=== PATIENT | female | born 1970 | race Caucasian/White ===

== ENCOUNTER 2017-04-03 18:48 | Inpatient (IN) | payer BC, OTHER ==
[~2017-04-03] VITALS: Ht 167.6 cm; Wt 76.2 kg
--- NOTE | ~2017-04-03 | H ---
[facility] [address] [place] [address] HISTORY AND PHYSICAL Name: SHEREE LEY Room #: 435-P ADM IN M.R.#: [id number] Admission: 04/03/17 Attend Phys: Jamir Simms MD Discharge: Date of : 68 Report #: [id number] THIS REPORT FOR: //name// CC: Jamir Choe DATE OF SERVICE: 04/03/2017 ATTENDING PHYSICIAN: Jamir Simms MD. PRIMARY CARE PHYSICIAN: Unknown. CHIEF COMPLAINT: Altered mental status. HISTORY OF PRESENT ILLNESS: The patient is a 46-year-old female who was sent as a direct admission from [facility] for altered mental status. She has been admitted there since 03/30/2017 for nausea and vomiting and head injury after a fall. She has chronic abdominal issues including chronic pancreatitis and sphincter of Oddi dysfunction and chronic abdominal pain. She has been getting second opinions with GI at [facility] and was recently diagnosed with cyclic vomiting syndrome. She was supposed to taper off her chronic narcotics and eventually her pancreatic enzymes and amitriptyline. She had been taking large amounts of oral Dilaudid and oxycodone for many years. She has been tapered off oxycodone since 03/20/2017. She said she was at home, having vomiting and then fell backwards in her bathroom and hit her head on a door knob and afterwards had some altered mental status, so she was taken into [facility]. She was treated as cyclic vomiting syndrome exacerbation initially, but she has continued to have altered mental status and delirium. Therefore, they requested a transfer to [facility] for further neurologic evaluation. The patient arrived confused. She was unable to remember where she was the last 4 days in the hospital. She thought she had stayed in a hotel last night in [place], [place]. She was unable to tell me the current month or year. She is arousable and stays alert during the assessment, but when asked questions, she has a hard time staying focused and goes off on tangents about non-relevant information. She then had to be refocused multiple times to get her back on track. She continues to complain of abdominal pain and is requesting pain medication. She says her vomiting seems to have improved and she is not actively vomiting at this time. PAST MEDICAL HISTORY: Hypertension, asthma, migraines, C. diff in 2016, chronic pancreatitis with sphincter of Oddi dysfunction, cyclic vomiting syndrome. PAST SURGICAL HISTORY: Cholecystectomy, appendectomy, hysterectomy, ERCP with sphincterotomy, 3 GI stents, x 3, Port-A-Cath placement, PEG tube with subsequent removal, and tonsillectomy. [address] [address] HISTORY AND PHYSICAL Name: SHEREE LEY Room #: 435-P [facility] IN M.R.#: [id number] Admission: 04/03/17 Attend Phys: Jamir Simms MD Discharge: Date of : 68 Report #: [id number] ALLERGIES: TYLENOL CAUSES JAUNDICE AND RASH, FENTANYL CAUSES HALLUCINATIONS, AND MORPHINE, THROAT SWELLING. HOME MEDICATIONS: Cetirizine 10 mg at bedtime, dicyclomine 20 mg b.i.d., Robaxin q.i.d. p.r.n., hydromorphone 8 mg q. 4 hours p.r.n. pain, gabapentin 300 mg t.i.d., nortriptyline 75 mg at bedtime, Seroquel 100 mg at bedtime, alprazolam 1 mg t.i.d. p.r.n., Imitrex p.r.n. headache, Symbicort 2 puffs b.i.d., Singulair 10 mg daily, Flonase 2 sprays b.i.d., oral Zofran p.r.n., Creon at bedtime, scopolamine patch q. 72 hours, Dexilant 60 mg at bedtime, Combivent inhaler q. 6 hours p.r.n. SOCIAL HISTORY: The patient is a never smoker. Denies any alcohol or drug use. She lives at home with her spouse and children. FAMILY HISTORY: Her mother had diabetes and heart disease. REVIEW OF SYSTEMS: The patient states she has had a rash on her ankle areas from wearing some work boots and developed a lot of moisture in the boots, which caused the rash and she has been treating it with different steroid creams, but states that has been pruritic. All other 12-point review of systems was reviewed with the patient and otherwise negative unless stated in the HPI. PHYSICAL EXAMINATION: GENERAL: The patient is an alert, but confused female, in no acute distress. VITAL SIGNS: Temperature is 36.7, heart rate 110, respirations 18, blood pressure is 120/82, oxygen 95% on room air. HEENT: PERRLA. Sclerae is nonicteric. Oral mucosa is pink and moist. NECK: Supple, no JVD noted. CARDIOVASCULAR: Normal S1, S2. No murmurs, rubs or gallops. RESPIRATORY: Breath sounds are clear bilaterally. No wheezing or rhonchi. Breathing is nonlabored. ABDOMEN: Soft and diffusely tender, more so in epigastric area and left lower quadrant. Bowel sounds are positive. VASCULAR: No edema noted. Pedal pulses are 2+. NEUROLOGIC: The patient is alert, but confused to place and time. She will answer questions eventually, but does have a hard time staying focused throughout the assessment and start getting off-track very easily and needed frequent redirection. Her speech is clear and comprehensible. She will follow commands. Muscle strength is 5/5 in all 4 extremities. SKIN: Intact. She does have rash around both ankles and skin is dry and flaky, but no open wounds. LABORATORY AND DIAGNOSTIC DATA: WBC is 5.0, hemoglobin 11.9, platelets 271. Sodium 142, potassium 3.2, BUN 3, creatinine 0.8, glucose 96. CT of the head at [place] was negative. UA was negative and urine drug screen is positive for opiates, oxycodone, TCA and benzos. [address] [address] HISTORY AND PHYSICAL Name: SHEREE LEY Room #: 435-P [facility] IN [facility].#: [id number] Admission: 04/03/17 Attend Phys: Jamir Simms MD Discharge: Date of : 68 Report #: [id number] ASSESSMENT AND PLAN: 1. Delirium, etiology is not clear. CT of the head was negative. This may be post-concussion type syndrome from a recent head injury, although other etiology cannot be completely ruled out. We will continue to check neuro exams, consult Neurology for further recommendations. We will continue her current medications, but hold for any sedation. This may be effect of some opiate withdrawal as she was recently taken off oxycodone, although she was continuing to take oral Dilaudid and has been receiving Dilaudid in the hospital in the last 4 days. 2. Recent cyclic vomiting exacerbation. This seems to have improved. We will advance her diet as tolerated and continue supportive care. 3. Anxiety. She is on multiple psych medications, but states she has been on the same meds for many years. If her delirium persists, we may need psych consult. 4. Hypokalemia. This will be replaced. Follow labs. 5. Chronic abdominal pain with chronic narcotic use. The patient is followed outpatient by GI and has already been set up on narcotic taper. She can follow up with GI outpatient. 6. Deep venous thrombosis prophylaxis, place sequential compression devices. We will continue to follow the patient closely throughout the hospitalization and make changes based on clinical status. <ELECTRONICALLY SIGNED> By: MARIAH Davis 04/04/17 [id number] [id number] MARIAH Davis /areli
--- NOTE | ~2017-04-03 | HC ---
[facility] [place] [address] [place] [address] CONSULTATION Name: SHEREE LEY Room #: 435-P [facility] IN .R.#: [id number] Admission: 04/03/17 Attend Phys: Jamir Simms MD Discharge: 04/07/17 Date of : 68 Report #: [id number] THIS REPORT FOR: //name// CC: Jamir Choe DATE OF SERVICE: 04/04/2017 HISTORY OF PRESENT ILLNESS: This is a 46-year-old female patient who was evaluated by me for confusion. This patient gives a history that she fell on Saturday. She hit the back portion of her head. I do not have any workup here, but apparently a CT scan of the head was unremarkable. She indicates she has improved, but still she is not completely back to her baseline. She does not remember much about it, so she does not remember whether she lost consciousness during this time or not, but I presume she did. She does have some problem for a long period of time. She is on multiple medications, which are psychotropic medication. REVIEW OF SYSTEMS: Indicate that she has numerous GI problems. She had vomiting. She has used multiple narcotics and psychotropic medication for a long period of time. Those are summarized in the patient's admission and history and physical and that was reviewed. It looks like she was much more confused when the history and physical was done than when she is here. She has been on multiple medications including tricyclics, gabapentin, alprazolam and she is trying to cut back. She also indicated that she has migraine headaches. She sees a neurologist, Dr. Fraga at [facility] and has tried Botox shots. This was a relevant 14-point review of system. PAST MEDICAL HISTORY: Positive for multiple GI problems. FAMILY HISTORY: Positive for diabetes. SOCIAL HISTORY: She does not smoke or drink any alcohol. PHYSICAL EXAMINATION: Indicate she is alert. She is responsive. She does not have much memory about the fall and she is not complaining of any neck pain, but she said she hit the back portion of the head and did get confused. She is otherwise alert. She knows where she is, which looks like different than the admission history and physical examination. I do not have her baseline memory or fund of knowledge to compare. Cranial nerve examination 2-12 looks mostly unremarkable to me. Neuromuscular looks symmetrical. Her neck movements are full and unrestricted. Cardiac examinations appear unremarkable. Her pulses are palpable. Reflexes are symmetrical. She is otherwise a well-developed individual. Her vital signs indicate a blood pressure of 131/90, respiration is 16, pulse is 110, temperature is 97.5. [facility] [address] [place] [address] CONSULTATION Name: SHEREE LEY Room #: 435-P [facility] IN M.R.#: [id number] Admission: 04/03/17 Attend Phys: Jamir Simms MD Discharge: 04/07/17 Date of : 68 Report #: [id number] LABORATORY DATA: Indicate a white count of 5.2 and her sodium is normal. I do not have her CT scan, but she tells me it was normal. IMPRESSION: It is possible that this patient had concussion when she had a fall. She also is on multiple psychotropic medications. She also has a history of anxiety and depression. Because of all this, it becomes very difficult to evaluate this patient further. RECOMMENDATIONS: 1. I will suggest getting an MRI of the brain done. 2. I will get an EEG done. 3. I will get a TSH and vitamin B12 level done. 4. She had a lot of nausea, vomiting and because of that, I will get a thiamine supplement to her. Dr. Corey will be taking over the service tomorrow and I will ask her to follow up on both tests and leave further recommendation. Thank you very much for this referral and if you have any questions, please feel free to contact me. <ELECTRONICALLY SIGNED> By: Otto Blake MD 04/12/172000 [id number] [id number] Otto Blake MD /nt
[~2017-04-03 18:48] MED LIST: ABILIFY 2 MG2 MG PO; ADVAIRDISKUS; CARAFATE 1 GM TA1 G1 PO; CELEXA 20 MG TA20 M1 PO; COLACE 100 MG100 MG PO; COMBIVENT INH; DEPAKOTE125 MG PO; DEXILANT60 MG PO; FLONASE 0.05%50 MCG NASAL; IMITREX 50 MG T50 M1 PO; IMITREX100 MG PO; IMITREX20 MG NASAL; LOPRESSOR 50 MG50 M1 PO; METOPROLOL SUCC25 M1 PO; OXYCODONE HCL 55 MG PO; PERCOCET 5-3251 EACH PO; PREDNISONE 5 MG5 M1 PO; PROTONIX40 MG PO; SYMBYAX 6-25 M1 EACH PO; TOPAMAX 25 MG T25 M1 PO; TOPAMAX25 M1 PO; TOPIRAGEN25 MG PO; VESICARE 5 MG TA5 MG PO; VICOPROFEN 2001 EACH PO; XANAX 0.5 MG0.5 M1 PO; ZOFRAN4 MG PO; ZYRTEC10 M1 PO; [UNRECOGNIZED DRUG - OTHER] PO
[2017-04-03 21:24] VITALS: BP 120/82
[2017-04-04] MEDS ORDERED: 24HOUR ALLERGY10 MG PO (02:01)
[2017-04-04] MEDS ORDERED: CREON DR 24,001 EACH PO (02:02)
[2017-04-04] MEDS ORDERED: BENTYL 20 MG TA20 M1 PO (02:03)
[2017-04-04] MEDS ORDERED: NEURONTIN 300300 M1 PO (02:03)
[2017-04-04] MEDS ORDERED: SINGULAIR 10 MG10 M1 PO (02:05)
[2017-04-04] MEDS ORDERED: ROBAXIN 750 MG750 M1 PO (02:05)
[2017-04-04] MEDS ORDERED: NORTRIPTYLINE H75 M1 PO (02:06)
[2017-04-04] MEDS ORDERED: ONDANSETRON HCL4 M2 PO (02:07)
[2017-04-04] MEDS ORDERED: QUETIAPINE FUM100 MG PO (02:08)
[2017-04-04] MEDS ORDERED: TRANSDERM-SCOP1 EACH (02:09)
[2017-04-04] MEDS ORDERED: SYMBICORT160 MCG/4. (02:13)
[2017-04-04] MEDS ORDERED: DILAUDID 2 MG TA2 MG PO (02:24)
[2017-04-04 07:55] VITALS: BP 116/84
[2017-04-04 08:27] LABS: HEMATOCRIT 35.8 % (37.0-47.0); HEMOGLOBIN 11.6 gm/dL (12.0-15.0); MCH 29.3 pg (26.0-34.0); MCHC 32.5 g/dL (28.0-37.0); MCV 90.1 fL (80.0-100.0); RBC 3.97 mil/uL (4.20-5.00); RDW 15.4 % (10.5-14.5); WBC 5.2 thou/uL (4.0-11.0)
[2017-04-04 08:36] LABS: CALCIUM 8.9 mg/dL (8.5-10.1); CREATININE 0.9 mg/dL (0.6-1.0); POTASSIUM 4.2 mmol/L (3.5-5.1)
[2017-04-04 15:15] VITALS: BP 131/90
[2017-04-04 19:00] LABS: TSH 10.232 uIU/mL (0.358-3.740)
[2017-04-04 19:39] VITALS: BP 126/85
[2017-04-05 04:55] VITALS: BP 120/80
[2017-04-05 08:00] VITALS: BP 121/77
[2017-04-05 20:00] VITALS: BP 147/92
[2017-04-06 04:30] VITALS: BP 96/69
[2017-04-06 07:15] VITALS: BP 136/94
[2017-04-06 15:20] VITALS: BP 136/94
[2017-04-06 20:45] VITALS: BP 139/90
[2017-04-07 04:38] VITALS: BP 115/78
[2017-04-07 04:52] LABS: HEMATOCRIT 35.1 % (37.0-47.0); HEMOGLOBIN 11.5 gm/dL (12.0-15.0); MCH 29.2 pg (26.0-34.0); MCHC 32.6 g/dL (28.0-37.0); MCV 89.6 fL (80.0-100.0); RBC 3.92 mil/uL (4.20-5.00); RDW 14.9 % (10.5-14.5); WBC 10.8 thou/uL (4.0-11.0)
[2017-04-07 05:12] LABS: CALCIUM 8.5 mg/dL (8.5-10.1); CREATININE 0.7 mg/dL (0.6-1.0); POTASSIUM 3.7 mmol/L (3.5-5.1)
[2017-04-07 07:26] VITALS: BP 116/66
[2017-04-07] MEDS ORDERED: MIRALAX17 GM PO (11:29)
[2017-04-07] MEDS ORDERED: DILAUDID 2 MG TA2 MG PO (11:30)
[2017-04-07 14:09] VITALS: BP 116/66
[2017-04-08 10:36] VITALS: BP 116/66
== END 2017-04-07 15:36 | disposition home health service (06) | DRG 102 ==
LOC: 4S 18:48
PROVIDERS: Hospitalist; Nurse Practitioner Acute Care; Psychiatry & Neurology Neuromuscular Medicine
DX: G43.A0 Cyclical vomiting, in migraine, not intractable (principal); G93.40 Encephalopathy, unspecified; F11.20 Opioid dependence, uncomplicated; K83.0 Cholangitis; R41.0 Disorientation, unspecified; E87.6 Hypokalemia; R10.9 Unspecified abdominal pain; F41.9 Anxiety disorder, unspecified; G89.4 Chronic pain syndrome; I10 Essential (primary) hypertension; K21.9 Gastro-esophageal reflux disease without esophagitis; G44.89 Other headache syndrome; T40.605A Adverse effect of unspecified narcotics, initial encounter; G43.909 Migraine, unspecified, not intractable, without status migrainosus; J45.909 Unspecified asthma, uncomplicated; Z82.49 Family history of ischemic heart disease and other diseases of the circulatory system; Z88.8 Allergy status to other drugs, medicaments and biological substances; Z91.018 Allergy to other foods; Z90.49 Acquired absence of other specified parts of digestive tract; Z79.899 Other long term (current) drug therapy; Z90.710 Acquired absence of both cervix and uterus; Z93.1 Gastrostomy status; Z83.3 Family history of diabetes mellitus
CPT/HCPCS: 10100; 10102